=== PATIENT | male | born 1990 | race Caucasian/White ===

== ENCOUNTER 2019-03-25 14:07 | Emergency (ER) | payer SELFPAY ==
[~2019-03-25] VITALS: Ht 170.2 cm; Wt 79.4 kg
--- NOTE | 2019-03-25 14:38 | ED GI ---
General Chief Complaint: Abdominal/GI Problems Stated Complaint: V/D/HEAD AND STOMACH PAIN Nursing Triage Note: VN/V/D X2 DAYS. ALSO COMPLAINS OF A HEADACHE. Sepsis Screen: No Definite Risk Source of Information: Patient Exam Limitations: No Limitations History of Present Illness Date Seen by Provider: Mar 25, 2019 Time Seen by Provider: 14:37 Initial Comments To ER with c/o headache, nausea, vomiting, diarrhea. No fevers. diarrhea is nonbloody. Timing/Duration: 2-3 Days Severity/Quality: Cramping Location: Generalized Abdomen Radiation: No Radiation Activities at Onset: None Associated Symptoms: Denies Symptoms Allergies and Home Medications Allergies Coded Allergies: Sulfamethoxazole (Unverified Allergy, 01/22/11) Trimethoprim (Unverified Allergy, 01/22/11) Home Medications Hyoscyamine Sulfate 0.125 Mg Tab.subl, 0.125 MG SL Q4H PRN for CRAMPS Prescribed by: GUILLERMINA WILLIAM on 03/25/19 1545 Ondansetron 8 Mg Tab.rapdis, 8 MG PO Q6H PRN for NAUSEA/VOMITING Prescribed by: GUILLERMINA WILLIAM on 03/25/19 1545 Patient Home Medication List Home Medication List Reviewed: Yes Review of Systems Review of Systems Constitutional: see HPI EENTM: No Symptoms Reported Respiratory: No Symptoms Reported Cardiovascular: See HPI Gastrointestinal: See HPI, Abdominal Pain Genitourinary: No Symptoms Reported Musculoskeletal: no symptoms reported Skin: no symptoms reported Psychiatric/Neurological: No Symptoms Reported Endocrine: No Symptoms Reported Hematologic/Lymphatic: No Symptoms Reported Past Mpfaekv-Jbyesl-Jvfmpp Hx Patient Social History Alcohol Use: Denies Use Recreational Drug Use: No Smoking Status: Never a Smoker Recent Foreign Travel: No Contact w/Someone Who Travel: No Recent Infectious Disease Expo: No Past Medical History Surgeries: Yes Ear Surgery, Nose, Tonsillectomy Physical Exam Vital Signs Vital Signs - First Documented 03/25/19 14:10 Temp 98.7 Pulse 80 Resp 16 B/P (MAP) 135/75 (95) Pulse Ox 97 O2 Delivery Room Air Capillary Refill : Less Than 3 Seconds Height/Weight/BMI Height: 5'7.00" Weight: 175lbs. oz. 79.131102ov; BMI Method:Stated General Appearance: WD/WN, no apparent distress Respiratory: no respiratory distress, no accessory muscle use Cardiovascular: regular rate, rhythm, no murmur Gastrointestinal: normal bowel sounds, soft Extremities: normal range of motion, non-tender Neurologic/Psychiatric: alert, normal mood/affect, oriented x 3 Skin: normal color, warm/dry Progress/Results/Core Measures Results/Orders Lab Results Laboratory Tests Test 03/25/19 14:26 03/25/19 15:27 Range/Units White Blood Count 6.3 4.3-11.0 10^3/uL Red Blood Count 5.43 4.35-5.85 10^6/uL Hemoglobin 16.7 13.3-17.7 G/DL Hematocrit 49 40-54 % Mean Corpuscular Volume 90 80-99 FL Mean Corpuscular Hemoglobin 31 25-34 PG Mean Corpuscular Hemoglobin Concent 34 32-36 G/DL Red Cell Distribution Width 12.7 10.0-14.5 % Platelet Count 234 130-400 10^3/uL Mean Platelet Volume 10.5 H 7.4-10.4 FL Neutrophils (%) (Auto) 61 42-75 % Lymphocytes (%) (Auto) 28 12-44 % Monocytes (%) (Auto) 9 0-12 % Eosinophils (%) (Auto) 3 0-10 % Basophils (%) (Auto) 0 0-10 % Neutrophils # (Auto) 3.8 1.8-7.8 X 10^3 Lymphocytes # (Auto) 1.8 1.0-4.0 X 10^3 Monocytes # (Auto) 0.6 0.0-1.0 X 10^3 Eosinophils # (Auto) 0.2 0.0-0.3 10^3/uL Basophils # (Auto) 0.0 0.0-0.1 10^3/uL Sodium Level 140 135-145 MMOL/L Potassium Level 4.1 3.6-5.0 MMOL/L Chloride Level 104 98-107 MMOL/L Carbon Dioxide Level 25 21-32 MMOL/L Anion Gap 11 5-14 MMOL/L Blood Urea Nitrogen 10 7-18 MG/DL Creatinine 0.87 0.60-1.30 MG/DL Estimat Glomerular Filtration Rate > 60 BUN/Creatinine Ratio 11 Glucose Level 82 70-105 MG/DL Calcium Level 9.5 8.5-10.1 MG/DL Corrected Calcium 9.2 8.5-10.1 MG/DL Total Bilirubin 0.5 0.1-1.0 MG/DL Aspartate Amino Transf (AST/SGOT) 21 5-34 U/L Alanine Aminotransferase (ALT/SGPT) 32 0-55 U/L Alkaline Phosphatase 151 H 40-136 U/L Total Protein 7.6 6.4-8.2 GM/DL Albumin 4.4 3.2-4.5 GM/DL Urine Color YELLOW Urine Clarity SLIGHTLY CLOUDY Urine pH 8 5-9 Urine Specific [place] 1.015 L 1.016-1.022 Urine Protein NEGATIVE NEGATIVE Urine Glucose (UA) NEGATIVE NEGATIVE Urine Ketones NEGATIVE NEGATIVE Urine Nitrite NEGATIVE NEGATIVE Urine Bilirubin NEGATIVE NEGATIVE Urine Urobilinogen NORMAL NORMAL MG/DL Urine Leukocyte Esterase NEGATIVE NEGATIVE Urine RBC (Auto) NEGATIVE NEGATIVE Urine RBC NONE /HPF Urine WBC NONE /HPF Urine Crystals PRESENT H /LPF Urine Amorphous Sediment LARGE ASAD URATES H /LPF Urine Bacteria NONE /HPF Urine Casts NONE /LPF Urine Mucus NEGATIVE /LPF Urine Culture Indicated NO My Orders Orders - GUILLERMINA WILLIAM APRN Cbc With Automated Diff (03/25/19 14:31) Comprehensive Metabolic Panel (03/25/19 14:31) Ua Culture If Indicated (03/25/19 14:31) Ed Iv/Invasive Line Start (03/25/19 14:31) Lactated Ringers (Lr 1000 Ml Iv Solution (03/25/19 14:45) Ondansetron Injection (Zofran Injectio (03/25/19 14:45) Ketorolac Injection (Toradol Injection) (03/25/19 14:45) Hyoscyamine Sl Tablet (Levsin Sl Tablet) (03/25/19 14:45) Medications Given in ED Current Medications Medications Dose Ordered Sig/Slade Route Start Time Stop Time Status Last Admin Dose Admin Hyoscyamine Sulfate 0.25 mg ONCE ONCE PO 03/25/19 14:45 03/25/19 14:46 DC 03/25/19 14:45 0.25 MG Ketorolac Tromethamine 30 mg ONCE ONCE IVP 03/25/19 14:45 03/25/19 14:46 DC 03/25/19 14:42 30 MG Ondansetron HCl 8 mg ONCE ONCE IVP 03/25/19 14:45 03/25/19 14:46 DC 03/25/19 14:42 8 MG Vital Signs/I&O 03/25/19 14:10 Temp 98.7 Pulse 80 Resp 16 B/P (MAP) 135/75 (95) Pulse Ox 97 O2 Delivery Room Air Blood Pressure Mean: 95 Departure Impression Primary Impression: Nausea vomiting and diarrhea Disposition: HOME, SELF-CARE Condition: Stable Departure-Patient Inst. Decision time for Depature: 15:43 Referrals: NO,LOCAL PHYSICIAN (PCP/Family) Primary Care Physician Patient Instructions: Diarrhea in Adolescents and Adults Add. Discharge Instructions: 1. Return to Er for any concerns 2. See your doctor next week 3. MEdications as directed All discharge instructions reviewed with patient and/or family. Voiced understanding. Scripts Hyoscyamine Sulfate (Levsin-Sl) 0.125 Mg Tab.subl 0.125 MG SL Q4H PRN for CRAMPS, #10 TAB 0 Refills Prov: GUILLERMINA WILLIAM APRN 03/25/19 Ondansetron (Ondansetron Odt) 8 Mg Tab.rapdis 8 MG PO Q6H PRN for NAUSEA/VOMITING, #10 TAB Prov: GUILLERMINA WILLIAM APRN 03/25/19 Work/School Note: Work Release Form Date Seen in the Emergency Department: Mar 25, 2019 Return to Work: Mar 27, 2019 GUILLERMINA WILLIAM APRN Mar 25, 2019 14:38
[2019-03-25 14:43] LABS: BASOPHILS % (AUTO) 0 % (0-10); EOSINOPHILS # (AUTO) 0.2 10^3/uL (0.0-0.3); EOSINOPHILS % (AUTO) 3 % (0-10); HEMATOCRIT 49 % (40-54); HEMOGLOBIN 16.7 G/DL (13.3-17.7); LYMPHOCYTES # (AUTO) 1.8 X 10^3 (1.0-4.0); LYMPHOCYTES % (AUTO) 28 % (12-44); MEAN CORPUSCULAR HEMOGLOBIN 31 PG (25-34); MEAN CORPUSCULAR HGB CONC 34 G/DL (32-36); MEAN CORPUSCULAR VOLUME 90 FL (80-99); MEAN PLATELET VOLUME 10.5 FL (7.4-10.4); MONOCYTES # (AUTO) 0.6 X 10^3 (0.0-1.0); MONOCYTES % (AUTO) 9 % (0-12); NEUTROPHILS # (AUTO) 3.8 X 10^3 (1.8-7.8); NEUTROPHILS % (AUTO) 61 % (42-75); PLATELET COUNT 234 10^3/uL (130-400); RED CELL DISTRIBUTION WIDTH 12.7 % (10.0-14.5); WHITE BLOOD COUNT 6.3 10^3/uL (4.3-11.0)
[2019-03-25] MEDS ORDERED: ONDANSETRON 4 MG/2 ML (SDV) Z0FRAN IVP ONE (14:45)
[2019-03-25] MEDS ORDERED: HYOSCYAMINE 0.125 MG (LEVSIN) TAB PO ONE (14:45)
[2019-03-25] MEDS ORDERED: LACTATED RINGERS 1,000 ML IV SCH (14:45)
[2019-03-25] MEDS ORDERED: KETOROLAC 30 MG/ML VIAL IVP ONE (14:45)
[2019-03-25 15:12] LABS: ALANINE AMINOTRANSFERASE 32 U/L (0-55); ALBUMIN 4.4 GM/DL (3.2-4.5); ALKALINE PHOSPHATASE 151 U/L (40-136); BILIRUBIN,TOTAL 0.5 MG/DL (0.1-1.0); BUN/CREATININE RATIO 11; CALCIUM 9.5 MG/DL (8.5-10.1); CARBON DIOXIDE 25 MMOL/L (21-32); CHLORIDE 104 MMOL/L (98-107); CREATININE SERUM 0.87 MG/DL (0.60-1.30); GFR ESTIMATED > 60; GLUCOSE 82 MG/DL (70-105); POTASSIUM 4.1 MMOL/L (3.6-5.0); SODIUM 140 MMOL/L (135-145); TOTAL PROTEIN 7.6 GM/DL (6.4-8.2)
--- NOTE | 2019-03-25 15:29 | NUR ---
TO ROOM PATIENT PLAYING ON PHONE REPORTS HE IS STILL DIZZY AND STILL HAVING ABD PAIN. NO VOMITING NOTED.
[2019-03-25 15:33] LABS: BILIRUBIN,URINE NEGATIVE (NEGATIVE); CLARITY,URINE SLIGHTLY CLOUDY; COLOR,URINE YELLOW; GLUCOSE, URINE (UA) NEGATIVE (NEGATIVE); KETONES,URINE NEGATIVE (NEGATIVE); LEUKOCYTE ESTERASE ,URINE NEGATIVE (NEGATIVE); NITRITE,URINE NEGATIVE (NEGATIVE); PH,URINE 8 (5-9); PROTEIN,URINE NEGATIVE (NEGATIVE); UROBILINOGEN,URINE NORMAL (NORMAL)
[2019-03-25 15:41] LABS: AMORPHOUS SEDIMENT,UR LARGE AMOR URATES /LPF
[2019-03-25] MEDS ORDERED: ONDA8TAB13 PO (15:45)
[2019-03-25] MEDS ORDERED: HYOS0.1283 SL (15:45)
[2019-03-25 15:54] VITALS: BP 117/77
== END 2019-03-25 15:54 | disposition home or self-care (01) ==
LOC: EDUNIT# 14:07 → ER 14:08
DX: R11.2 Nausea with vomiting, unspecified (principal); R19.7 Diarrhea, unspecified; Z88.2 Allergy status to sulfonamides; Z88.1 Allergy status to other antibiotic agents; Z90.89 Acquired absence of other organs
CPT/HCPCS: 36415; 80053; 81000; 85025

== ENCOUNTER 2019-10-10 14:13 | Emergency (ER) | payer SELFPAY ==
[~2019-10-10] VITALS: Ht 177 cm; Wt 90.0 kg
[~2019-10-10 14:13] MED LIST: HYOS0.1283 SL; ONDA8TAB13 PO
--- NOTE | 2019-10-10 14:37 | ED General ---
General Chief Complaint: Psych/Social Disorder Stated Complaint: CHEST CONGESTION;TROUBLE BREATHING Nursing Triage Note: THE PT IS AMBULATORY TO THE ROOM WITHOUT DIFFICULRTY. NO DISTRESS IS SEEN ON ARRIVAL. LOC IS NORMAL FOR THE PT. THE PT STATES THE HE MAY BE ALLERGIC TO SOME CHEMICALS AT HIS WORK. HE HAS NO VISIBLE SX OF DISTRESS ON ARRIVAL. Nursing Sepsis Screen: No Definite Risk Source of Information: Patient Exam Limitations: No Limitations History of Present Illness Date Seen by Provider: Oct 10, 2019 Time Seen by Provider: 14:36 Initial Comments To ER with reports of a nonproductive cough, dyspnea on exertion since yesterday when he inhaled some sugar dust at [employer] where he is employed. No recent travel no fever no chills Timing/Duration: 1-2 Days Severity: Moderate Associated Systoms: Cough Allergies and Home Medications Allergies Coded Allergies: Sulfamethoxazole (Unverified Allergy, 01/22/11) Trimethoprim (Unverified Allergy, 01/22/11) Home Medications Hyoscyamine Sulfate 0.125 Mg Tab.subl, 0.125 MG SL Q4H PRN for CRAMPS Prescribed by: GUILLERMINA WILLIAM on 03/25/19 154 Ondansetron 8 Mg Tab.rapdis, 8 MG PO Q6H PRN for NAUSEA/VOMITING Prescribed by: GUILLERMINA WILLIAM on 03/25/19 1545 Patient Home Medication List Home Medication List Reviewed: Yes Review of Systems Review of Systems Constitutional: see HPI EENTM: see HPI Respiratory: see HPI, cough Cardiovascular: no symptoms reported Genitourinary: no symptoms reported Musculoskeletal: no symptoms reported Skin: no symptoms reported Psychiatric/Neurological: No Symptoms Reported Hematologic/Lymphatic: No Symptoms Reported (FO CKS) Past Djafivr-Ktjnzh-Suqjww Hx Patient Social History Recent Foreign Travel: No Contact w/Someone Who Travel: No Recent Infectious Disease Expo: No Physical Abuse: No Sexual Abuse: No Mistreated: No Fear: No Past Medical History Surgeries: Yes Ear Surgery, Nose, Tonsillectomy Physical Exam Vital Signs Vital Signs - First Documented 10/10/19 10/10/19 14:20 14:56 Temp 37.7 Pulse 99 B/P (MAP) 140/80 (100) Pulse Ox 98 O2 Delivery Room Air Capillary Refill : Less Than 3 Seconds Height, Weight, BMI Height: 5'7.00" Weight: 175lbs. oz. 79.581288ml; 28.00 BMI Method:Stated General Appearance: No Apparent Distress, WD/WN Eyes: Bilateral Eye Normal Inspection, Bilateral Eye PERRL, Bilateral Eye EOMI HEENT: PERRL/EOMI, TMs Normal Neck: Full Range of Motion, Normal Inspection Respiratory: No Accessory Muscle Use, No Respiratory Distress; No Wheezing Gastrointestinal: Normal Bowel Sounds, Non Tender, Soft Extremity: Normal Capillary Refill Neurologic/Psychiatric: Alert, Oriented x3 Progress/Results/Core Measures Suspected Sepsis Recent Fever Within 48 Hours: No Infection Criteria Present: None New/Unexplained Altered Menta: No Sepsis Screen: No Definite Risk SIRS Temperature: Pulse: 99 Respiratory Rate: Blood Pressure 140 /80 Mean: 100 Results/Orders My Orders Orders - GUILLERMINA WILLIAM APRN Albuterol/Ipra Inhalation Soln (Duoneb I (10/10/19 14:45) Svn Small Volume Nebulizer (10/10/19 14:35) Chest Pa/Lat (2 View) (10/10/19 14:35) Medications Given in ED Current Medications Medications Dose Ordered Sig/Slade Route Start Time Stop Time Status Last Admin Dose Admin Albuterol/ Ipratropium 3 ml ONCE ONCE INH 10/10/19 14:45 10/10/19 14:46 DC 10/10/19 14:55 3 ML Vital Signs/I&O 10/10/19 10/10/19 14:20 14:56 Temp 37.7 Pulse 99 B/P (MAP) 140/80 (100) Pulse Ox 98 O2 Delivery Room Air Capillary Refill : Less Than 3 Seconds Blood Pressure Mean: 100 Departure Impression Primary Impression: Cough Additional Impression: Dyspnea on exertion Disposition: 01 HOME, SELF-CARE Condition: Stable Departure-Patient Inst. Decision time for Depature: 15:09 Referrals: NO,LOCAL PHYSICIAN (PCP/Family) Primary Care Physician Patient Instructions: Cough, Adult (DC) Add. Discharge Instructions: 1. Return to ER for any concerns 2. Follow-up with your doctor next week 3. All discharge instructions reviewed with patient and/or family. Voiced understanding. Scripts Albuterol Sulfate (PROAIR HFA) 1 Puff Puff 2 PUFF IH Q4H PRN for COUGH, #1 PUFF 1 PUFF = 90 MCG Prov: GUILLERMINA WILLIAM APRN 10/10/19 GUILLERMINA WILLIAM APRN Oct 10, 2019 14:37
[2019-10-10] MEDS ORDERED: RT-ALBUTEROL/IPRATROPIUM 3 ML (DUONEB) VIAL INH ONE (14:45)
--- NOTE | 2019-10-10 14:57 | Diagnostic Imaging Report ---
EXAMINATION: PA and lateral chest at 02:48 p.m. INDICATION: Chemical reaction. FINDINGS: There are no prior studies available for comparison. The heart size is within normal limits. The lungs are clear. There is no evidence of failure, pneumonia, or for a pleural effusion. The mediastinum is not widened. The osseous structures are intact. IMPRESSION: 1. There is no evidence for active disease. 2. If clinical concern regarding an underlying abnormality persists, then a short-term (24 to 48-hour) follow-up chest exam would be recommended for further study. Dictated by: Dictated on workstation # [id number]
[2019-10-10] MEDS ORDERED: RT-ALBUINH IH (15:09)
[2019-10-10 15:20] VITALS: BP 120/80
--- OUTSIDE RECORDS SUMMARY | 2019-10-12 13:56 | XMS REPORT | Continuity of Care Document ---
Author Organization Unknown Address Unknown Phone Unavailable Allergies Active Description Code Type Severity Reaction Onset Reported/Identified Relationship to Patient Clinical Status Yes sulfamethoxazole [id number] Drug Allergy Unknown N/A 01/22/2011 Yes trimethoprim [id number] Drug Allergy Unknown N/A 01/22/2011 Medications There is no data. Problems Date Dx Coded Attending Type Code Diagnosis Diagnosed By 03/25/2019 GUILLERMINA WILLIAM APRN Ot R11 .2 NAUSEA WITH VOMITING, UNSPECIFIED 03/25/2019 GUILLERMINA WILLIAM APRN Ot R19 .7 DIARRHEA, UNSPECIFIED 03/25/2019 GUILLERMINA WILLIAM APRN Ot Z88 .1 ALLERGY STATUS TO OTHER ANTIBIOTIC AGENT 03/25/2019 GUILLERMINA WILLIAM APRN Ot Z88 .2 ALLERGY STATUS TO SULFONAMIDES STATUS 03/25/2019 GUILLERMINA WILLIAM APRN Ot Z90.89 ACQUIRED ABSENCE OF OTHER ORGANS 03/28/2019 GUILLERMINA WILLIAM APRN Ot R11 .2 NAUSEA WITH VOMITING, UNSPECIFIED 03/28/2019 GUILLERMINA WILLIAM APRN Ot R19 .7 DIARRHEA, UNSPECIFIED 03/28/2019 GUILLERMINA WILLIAM APRN Ot Z88 .1 ALLERGY STATUS TO OTHER ANTIBIOTIC AGENT 03/28/2019 GUILLERMINA WILLIAM APRN Ot Z88 .2 ALLERGY STATUS TO SULFONAMIDES STATUS 03/28/2019 GUILLERMINA WILLIAM APRN Ot Z90.89 ACQUIRED ABSENCE OF OTHER ORGANS Procedures There is no data. Results Test Result Range Complete blood count (CBC) with automate d white blood cell (WBC) differential - 03/25/19 14:26 Blood leukocytes automated count (number/volume) 6.3 10*3/uL 4.3-11.0 Blood erythrocytes automated count (number/volume) 5.43 10*6/uL 4.35-5.85 Venous blood hemoglobin measurement (mass/volume) 16.7 g/dL 13.3-17.7 Blood hematocrit (volume fraction) 49 % 40-54 Automated erythrocyte mean corpuscular volume 90 [ foz_us] 80-99 Automated erythrocyte mean corpuscular h emoglobin (mass per erythrocyte) 31 pg 25-34 Automated erythrocyte mean corpuscular h emoglobin concentration measurement (mass/volume) 34 g/dL 32-36 Automated erythrocyte distribution width ratio 12. 7 % 10.0- 14.5 Automated blood platelet count (count/volume) 234 10*3/uL 130-400 Automated blood platelet mean volume measurement 10.5 [foz_us] 7.4-10.4 Automated blood neutrophils/100 leukocytes 61 % 42-75 Automated blood lymphocytes/100 leukocytes 28 % 12-44 Blood monocytes/100 leukocytes 9 % 0-12 Automated blood eosinophils/100 leukocytes 3 % 0-10 Automated blood basophils/100 leukocytes 0 % 0-10 Blood neutrophils automated count (number/volume) 3.8 10*3 1.8-7.8 Blood lymphocytes automated count (number/volume) 1.8 10*3 1.0-4.0 Blood monocytes automated count (number/volume) 0. 6 10*3 0.0-1.0 Automated eosinophil count 0.2 10*3/uL 0 .0-0.3 Automated blood basophil count (count/volume) 0.0 10*3/uL 0.0-0.1 Comprehensive metabolic panel - 03/25/19 14:26 Serum or plasma sodium measurement (moles/volume) 140 mmol/L 135-145 Serum or plasma potassium measurement (moles/volume) 4.1 mmol/L 3.6-5.0 Serum or plasma chloride measurement (moles/volume) 104 mmol/L 98-107 Carbon dioxide 25 mmol/L 21-32 Serum or plasma anion gap determination (moles/volume) 11 mmol/L 5-14 Serum or plasma urea nitrogen measurement (mass/volume ) 10 mg/dL 7-18 Serum or plasma creatinine measurement (mass/volume) 0.87 mg/dL 0.60-1.30 Serum or plasma urea nitrogen/creatinine mass ratio 11 NRG Serum or plasma creatinine measurement w ith calculation of estimated glomerular filtration rate > NRG Serum or plasma glucose measurement (mass/volume) 82 mg/dL 70-105 Serum or plasma calcium measurement (mass/volume) 9.5 mg/dL 8.5-10.1 Serum or plasma total bilirubin measurement (mass/volu me) 0.5 mg/dL 0.1-1.0 Serum or plasma alkaline phosphatase abbey surement (enzymatic activity/volume) 151 U/L 40-136 Serum or plasma aspartate aminotransfera se measurement (enzymatic activity/volume) 21 U/L 5-34 Serum or plasma alanine aminotransferase measurement (enzymatic activity/volume) 32 U/L 0-55 Serum or plasma protein measurement (mass/volume) 7.6 g/dL 6.4-8.2 Serum or plasma albumin measurement (mass/volume) 4.4 g/dL 3.2-4.5 CALCIUM CORRECTED 9.2 mg/dL 8.5-10.1 Complete urinalysis with reflex to cultu re - 03/25/19 15:27 Urine color determination YELLOW NRG Urine clarity determination SLIGHTLY CLOUDY NRG Urine pH measurement by test strip 8 5-9 Specific gravity of urine by test strip 1.015 1.016-1.022 Urine protein assay by test strip, semi-quantitative NEGATIVE NEGATIVE Urine glucose detection by automated test strip NE GATIVE NEGATIVE Erythrocytes detection in urine sediment by light micr oscopy NEGATIVE NEGATIVE Urine ketones detection by automated test strip NE GATIVE NEGATIVE Urine nitrite detection by test strip NEGATIVE NEGATIVE Urine total bilirubin detection by test strip NEGA TIVE NEGATIVE Urine urobilinogen measurement by automated test strip (mass/volume) NORMAL NORMAL Urine leukocyte esterase detection by dipstick NEG ATIVE NEGATIVE Automated urine sediment erythrocyte cou nt by microscopy (number/high power field) NONE NRG Automated urine sediment leukocyte count by microscopy (number/high power field) NONE NRG Bacteria detection in urine sediment by light microsco py NONE NRG Crystals detection in urine sediment by light microsco py PRESENT NRG Casts detection in urine sediment by light microscopy NONE NRG Mucus detection in urine sediment by light microscopy NEGATIVE NRG Complete urinalysis with reflex to culture NO NRG Amorphous sediment detection in urine sediment by ligh t microscopy LARGE ASAD URATES NRG Encounters ACCT No. Visit Date/Time Discharge Status Pt. Type Provider Facility Loc./Unit Complaint [id number] 10/10/2019 14:14:00 020 15:21:00 DIS Emergency GUILLERMINA WILLIAM APRN [facility] ER CHEST CONGESTION;TROUBL E BREATHING [id number] 03/25/2019 14:08:00 019 15:54:00 DIS Emergency GUILLERMINA WILLIAM APRN [facility] ER V/D/HEAD AND STOMACH PA IN
== END 2019-10-10 15:21 | disposition home or self-care (01) ==
LOC: EDUNIT# 14:13 → ER 14:14
DX: R05 Cough (principal); R06.09 Other forms of dyspnea; Z88.2 Allergy status to sulfonamides; Z88.1 Allergy status to other antibiotic agents
CPT/HCPCS: 71046; 94640